=== PATIENT | female | born 1985 | race Caucasian/White ===

== ENCOUNTER → 2020-08-24 13:22 | Outpatient (CLI) | payer OTHER, MEDICAID, SELFPAY ==
[2020-08-24 12:59] VITALS: BMI 23.1
[2020-08-24 15:36] LABS: Absolute Neutrophil Count 3.5 X10^3/uL (2.0-7.7); Basophil# 0.02 X10^3/uL; Basophil% 0.4 % (0-1); Eosinophil# 0.03 X10^3/uL; Eosinophils% 0.6 % (0-5); Hematocrit 39.5 % (37-47); Hemoglobin 13.2 g/dL (12.0-15.0); Lymphocyte % 27.8 % (19-41); Mean Corp Hgb Conc 33.4 g/dL (32-36); Mean Corpuscular Hgb 30.1 pg (27.0-32.0); Mean Corpuscular Volume 90.2 fL (81-99); Mean Platelet Vol. 11.4 fl (6.2-12.0); Monocyte# 0.35 X10^3/uL; Monocyte% 6.5 % (0-10); NRBC Flagged by Analyzer 0 % (0-5); Neutrophil # 3.48 X10^3/uL (2.7-7.7); Neutrophil % 64.5 % (47-70); Platelet Count 212 K/mm3 (150-450); RBC Distribution Width CV 12.2 % (11.6-14.6); RBC Distribution Width SD 40.2 fl (35.1-43.9); Red Blood Count 4.38 M/mm3 (4.2-5.4); White Blood Count 5.4 K/mm3 (4.4-11.0)
[2020-08-24 15:57] LABS: ALB/GLOB Ratio 1.3 RATIO (0.9-2.4); AST(SGOT) 24 U/L (15-37); Alanine Aminotransfer ALT/SGPT 45 U/L (13-56); Albumin, Serum 4.4 g/dL (3.2-5.0); Alkaline Phosphatase 45 U/L (45-117); Anion Gap 5 (5-15); BUN 14 mg/dL (7-18); BUN/Creat Ratio 19.4 RATIO (10-20); Chloride 106 mmol/L (98-107); Cholesterol 202 mg/dL (200); Creatinine, Serum 0.72 mg/dL (0.55-1.02); EST Glomerular Filtration Rate 99 mL/min (>60); Est Glom Filt Rate - Afr Amer 119 mL/min (>60); Globulin 3.3 g/dL (2.2-4.2); Glucose 77 mg/dL (74-106); High Density Lipoprotein 66 mg/dL; Potassium 3.8 mmol/L (3.5-5.1); Protein, Total 7.7 g/dL (6.4-8.2); Sodium Level 139 mmol/L (136-145); T4 Free Direct 0.96 ng/dL (0.76-1.46); Thyroid Stim Hormone (TSH) 0.93 uIU/mL (0.358-3.74); Triglycerides 68 mg/dL; Very Low Density Lipoprotein 14 mg/dL (5-40)
== END ==
PROVIDERS: PCP Internal Medicine; Referring Provider Nurse Practitioner Family; Visit Provider Nurse Practitioner Family
DX: Z00.00 Encounter for general adult medical examination without abnormal findings (principal)
CPT/HCPCS: 36415; 80053; 80061; 84439; 84443; 85025

== ENCOUNTER → 2020-10-01 12:53 | Outpatient (CLI) | payer OTHER, MEDICAID, SELFPAY ==
[2020-08-24 12:59] VITALS: BMI 23.1
[2020-10-01 13:59] LABS: hCG Titer Quant., Serum 844 mIU/mL (1-3)
== END ==
PROVIDERS: PCP Internal Medicine; Referring Provider Obstetrics & Gynecology; Visit Provider Obstetrics & Gynecology
DX: O20.0 Threatened abortion (principal)
CPT/HCPCS: 36415; 84702; 86850; 86900; 86901

== ENCOUNTER → 2020-10-03 09:02 | Outpatient (CLI) | payer OTHER, MEDICAID, SELFPAY ==
[2020-08-24 12:59] VITALS: BMI 23.1
[2020-10-03 11:11] LABS: hCG Titer Quant., Serum 1003 mIU/mL (1-3)
== END ==
PROVIDERS: PCP Internal Medicine; Referring Provider Obstetrics & Gynecology; Visit Provider Obstetrics & Gynecology
DX: N93.9 Abnormal uterine and vaginal bleeding, unspecified (principal)
CPT/HCPCS: 36415; 84702

== ENCOUNTER → 2020-10-04 12:48 | Outpatient (CLI) | payer OTHER, MEDICAID, SELFPAY ==
[2020-08-24 12:59] VITALS: BMI 23.1
--- NOTE | 2020-10-04 12:52 | US_ITS ---
STUDY: FIRST TRIMESTER OBSTETRICAL ULTRASOUND REASON FOR EXAM: Female, 34 years old dating/viability -hcg 1003 LMP: Unknown TECHNIQUE: Transabdominal and Transvaginal TECHNICAL QUALITY: Adequate. PRIOR ULTRASOUND: None. FINDINGS: There is no demonstrated intrauterine gestational sac. There is no demonstrated yolk sac. The placenta is non-visualized. There is no demonstrated embryo ( pole). The uterus measures 9.5 cm x 6 cm x 5.3 cm. The endometrium measures 9 mm. There is no demonstrated uterine fibroid. The cervix is closed. The right ovary measures 3.4 cm x 2.2 cm x 1.9 cm. There is no right ovarian cyst. There is no visualized right adnexal mass or complex lesion. The left ovary measures 4.5 cm x 2.5 cm x 2.9 cm. There is a 1.9 cm x 1.8 cm x 1.8 cm complex nodule in the left adnexa. An ectopic cannot be excluded. Follow-up and correlation with serial beta hCG is recommended. There is minimal fluid in the cul de sac. US/Transvaginal w/Preg US IMPRESSION: No intrauterine gestational sac is seen. 1.9 cm x 1.8 cm x 1.8 cm complex nodule in the left adnexa. Correlation with serial beta hCG is recommended. Minimal amount of free fluid is seen in the cul-de-sac. Electronically Signed: Anderson العراقي, at 13:39 EST , Service support ,
== END ==
PROVIDERS: PCP Internal Medicine; Referring Provider Obstetrics & Gynecology; Visit Provider Obstetrics & Gynecology
DX: Z36.87 Encounter for antenatal screening for uncertain dates (principal)
CPT/HCPCS: 76817

== ENCOUNTER → 2020-10-05 14:00 | Outpatient (CLI) | payer OTHER, MEDICAID, SELFPAY ==
[2020-08-24 12:59] VITALS: BMI 23.1
[2020-10-05 14:49] LABS: hCG Titer Quant., Serum 1243 mIU/mL (1-3)
== END ==
PROVIDERS: PCP Internal Medicine; Referring Provider Obstetrics & Gynecology; Visit Provider Obstetrics & Gynecology
DX: O20.0 Threatened abortion (principal)
CPT/HCPCS: 36415; 84702

== ENCOUNTER → 2020-10-08 11:25 | Outpatient (CLI) | payer OTHER, MEDICAID, SELFPAY ==
--- NOTE | 2020-10-08 11:39 | US_ITS ---
STUDY: FIRST TRIMESTER OBSTETRICAL ULTRASOUND REASON FOR EXAM: Female, 34 years old VIABILITY, HCG 10/05/20- 1243 HCG 10/03/20 1003, UNKNOWN LMP LMP: Unknown. TECHNIQUE: Transvaginal TECHNICAL QUALITY: Adequate. PRIOR ULTRASOUND: Comparison is made with prior examination dated 10/04/2020. FINDINGS: There is no demonstrated intrauterine gestational sac. The endometrium is fluid-filled with increased echoes within it. There is no demonstrated yolk sac. The placenta is non-visualized. There is no demonstrated embryo ( pole). The estimated gestation age (EGA) by LMP is unknown. The uterus measures 8.8 cm x 4.6 cm x 6.3 cm. The endometrium measures 5.8 mm. It is fluid-filled with heterogeneous material. There is no demonstrated uterine fibroid. The cervix is closed. The right ovary measures 2.4 cm x 1.4 cm x 2.3 cm. There is no right ovarian cyst. There is no visualized right adnexal mass or complex lesion. The left ovary measures 2.9 cm x 2.9 cm x 4.8 cm. There is a 2.4 cm x 2.2 cm x 1.8 cm complex cyst in the left ovary. Follow-up is recommended. There is no visualized left adnexal mass or complex lesion. There is minimal fluid in the cul de sac. US/Init OB < 14Wks US IMPRESSION: No intrauterine gestational sac is seen. Heterogeneous appearance of the endometrium with fluid within. 2.4 cm x 2.2 cm x 1.8 cm complex cyst in the left ovary. Follow-up is recommended. Electronically Signed: Anderson العراقي, at 13:13 EST , Service support ,
[2020-10-08 14:39] LABS: hCG Titer Quant., Serum 1941 mIU/mL (1-3)
== END ==
PROVIDERS: PCP Internal Medicine; Visit Provider Obstetrics & Gynecology
DX: O20.0 Threatened abortion (principal)
CPT/HCPCS: 36415; 76801; 84702

== ENCOUNTER → 2020-10-09 13:07 | Outpatient (CLI) | payer OTHER, MEDICAID, SELFPAY ==
[2020-10-09 13:37] LABS: Absolute Lymphocyte Count 1.71 X10^3/uL (0.83-4.51); Absolute Neutrophil Count 3.7 X10^3/uL (2.0-7.7); Basophil# 0.02 X10^3/uL; Basophil% 0.3 % (0-1); Eosinophil# 0.04 X10^3/uL; Eosinophils% 0.7 % (0-5); Hematocrit 41.2 % (37-47); Hemoglobin 13.4 g/dL (12.0-15.0); Lymphocyte # 1.71 X10^3/ul (4.0); Mean Corp Hgb Conc 32.5 g/dL (32-36); Mean Corpuscular Hgb 29.9 pg (27.0-32.0); Monocyte# 0.43 X10^3/uL; Monocyte% 7.3 % (0-10); NRBC Flagged by Analyzer 0 % (0-5); Neutrophil # 3.68 X10^3/uL (2.7-7.7); Neutrophil % 62.5 % (47-70); Platelet Count 193 K/mm3 (150-450); RBC Distribution Width CV 12.8 % (11.6-14.6); RBC Distribution Width SD 43.4 fl (35.1-43.9); Red Blood Count 4.48 M/mm3 (4.2-5.4); White Blood Count 5.9 K/mm3 (4.4-11.0)
[2020-10-09 14:04] LABS: ALB/GLOB Ratio 1.4 RATIO (0.9-2.4); AST(SGOT) 9 U/L (15-37); Alanine Aminotransfer ALT/SGPT 25 U/L (13-56); Albumin, Serum 4.4 g/dL (3.2-5.0); Alkaline Phosphatase 51 U/L (45-117); Anion Gap 5 (5-15); BUN 17 mg/dL (7-18); BUN/Creat Ratio 25.3 RATIO (10-20); Chloride 109 mmol/L (98-107); Creatinine, Serum 0.67 mg/dL (0.55-1.02); EST Glomerular Filtration Rate 107 mL/min (>60); Est Glom Filt Rate - Afr Amer 129 mL/min (>60); Globulin 3.2 g/dL (2.2-4.2); Glucose 83 mg/dL (74-106); Potassium 3.4 mmol/L (3.5-5.1); Protein, Total 7.6 g/dL (6.4-8.2); Sodium Level 141 mmol/L (136-145)
[2020-10-09 14:21] LABS: hCG Titer Quant., Serum 2161 mIU/mL (1-3)
== END ==
PROVIDERS: PCP Internal Medicine; Referring Provider Obstetrics & Gynecology; Visit Provider Obstetrics & Gynecology
DX: O00.90 Unspecified ectopic pregnancy without intrauterine pregnancy (principal)
CPT/HCPCS: 36415; 80053; 84702; 85025

== ENCOUNTER → 2020-10-12 11:59 | Outpatient (CLI) | payer OTHER, MEDICAID, SELFPAY ==
[2020-10-09 13:54] VITALS: BMI 22.8
[2020-10-12 14:00] LABS: hCG Titer Quant., Serum 2996 mIU/mL (1-3)
== END ==
PROVIDERS: PCP Nurse Practitioner Family; Referring Provider Obstetrics & Gynecology; Visit Provider Obstetrics & Gynecology
DX: O00.90 Unspecified ectopic pregnancy without intrauterine pregnancy (principal); Z3A.00 Weeks of gestation of pregnancy not specified
CPT/HCPCS: 36415; 84702

== ENCOUNTER → 2020-10-15 16:20 | Outpatient (CLI) | payer OTHER, MEDICAID, SELFPAY ==
[2020-10-09 13:54] VITALS: BMI 22.8
[2020-10-15 17:09] LABS: Absolute Lymphocyte Count 1.87 X10^3/uL (0.83-4.51); Absolute Neutrophil Count 2.8 X10^3/uL (2.0-7.7); Basophil# 0.05 X10^3/uL; Basophil% 0.9 % (0-1); Eosinophil# 0.09 X10^3/uL; Eosinophils% 1.7 % (0-5); Hematocrit 38.8 % (37-47); Hemoglobin 12.7 g/dL (12.0-15.0); Lymphocyte # 1.87 X10^3/ul (4.0); Lymphocyte % 35.2 % (19-41); Mean Corp Hgb Conc 32.7 g/dL (32-36); Mean Corpuscular Hgb 30.2 pg (27.0-32.0); Mean Corpuscular Volume 92.2 fL (81-99); Mean Platelet Vol. 10.9 fl (6.2-12.0); Monocyte# 0.51 X10^3/uL; Monocyte% 9.6 % (0-10); NRBC Flagged by Analyzer 0 % (0-5); Neutrophil # 2.79 X10^3/uL (2.7-7.7); Neutrophil % 52.4 % (47-70); Platelet Count 198 K/mm3 (150-450); RBC Distribution Width CV 12.7 % (11.6-14.6); RBC Distribution Width SD 42.8 fl (35.1-43.9); Red Blood Count 4.21 M/mm3 (4.2-5.4); White Blood Count 5.3 K/mm3 (4.4-11.0)
[2020-10-15 18:41] LABS: ALB/GLOB Ratio 1.3 RATIO (0.9-2.4); AST(SGOT) 23 U/L (15-37); Alanine Aminotransfer ALT/SGPT 52 U/L (13-56); Albumin, Serum 4.1 g/dL (3.2-5.0); Alkaline Phosphatase 49 U/L (45-117); Anion Gap 7 (5-15); BUN 17 mg/dL (7-18); BUN/Creat Ratio 26.4 RATIO (10-20); Calcium,Total 8.6 mg/dL (8.5-10.1); Chloride 106 mmol/L (98-107); Creatinine, Serum 0.64 mg/dL (0.55-1.02); EST Glomerular Filtration Rate 112 mL/min (>60); Est Glom Filt Rate - Afr Amer 136 mL/min (>60); Globulin 3.1 g/dL (2.2-4.2); Glucose 84 mg/dL (74-106); Potassium 3.7 mmol/L (3.5-5.1); Protein, Total 7.2 g/dL (6.4-8.2); Sodium Level 140 mmol/L (136-145)
[2020-10-15 18:42] LABS: hCG Titer Quant., Serum 2056 mIU/mL (1-3)
== END ==
PROVIDERS: PCP Nurse Practitioner Family; Visit Provider Obstetrics & Gynecology
DX: O00.90 Unspecified ectopic pregnancy without intrauterine pregnancy (principal)
CPT/HCPCS: 36415; 80053; 84702; 85025

== ENCOUNTER 2020-10-18 17:20 | Emergency (ER) | payer OTHER, MEDICAID, SELFPAY ==
[2020-10-09 13:54] VITALS: BMI 22.8
[2020-10-18 17:21] VITALS: BP 140/76; PULSE 75; RESP 16; TEMP 36; O2SAT 100; BMI 22.2
--- NOTE | 2020-10-18 17:46 | US_ITS ---
STUDY: FIRST TRIMESTER OBSTETRICAL ULTRASOUND REASON FOR EXAM: Female, 35 years old status post left ectopic . Now with increasing pelvic pain. LMP: Unknown. TECHNIQUE: Transvaginal TECHNICAL QUALITY: Adequate. PRIOR ULTRASOUND: 07/09/2020. FINDINGS: The anteverted uterus measures 9.7 x 5.8 x 5.1 cm. The endometrium measures 8 mm. There is fluid in the endometrial canal with questionable minimal septation. There is no demonstrated uterine fibroid. There is evidence of a prior scar. There is minimal fluid in the cervical canal. The right ovary measures 2.9 x 2.6 x 1.5. There is no right ovarian cyst. There is no visualized right adnexal mass or complex lesion. Normal vascularity on DOPPLER imaging. The left ovary measures 3.7 x 1.7 x 1.6. There are multiple follicles of the left ovary without a dominant cyst. There is no visualized left adnexal mass or complex lesion. Normal vascularity on DOPPLER imaging. There is minimal fluid in the cul de sac, thought to be physiologic. US/Transvaginal w/Preg US IMPRESSION: 1. Fluid in the endometrial and cervical canals. There is a question of minimal soft tissue septation in the endometrial canal. 2. Normal ovaries. There is no evidence of a complex cyst seen in the left ovary on the previous study. Electronically Signed: Jeremias Sorto DO at 19:42 EST Tel [phone], Service support ,
--- NOTE | 2020-10-18 18:02 | ED.VIS.GEN ---
History of Present Illness Chief Complaint: Vag Bld, Preg Informant: Patient Onset: Today Narrative: Patient presents with sudden left pelvic pain and bleeding around 4:30 PM less than 2 hours ago. Patient , with twins followed by Dr. George Miranda. She was diagnosed with a recent ectopic on the left side status post chemical with injection of methotrexate 9 days ago. Is been having serial hCGs, however cramping and bleeding started today. Intermittent intense cramping symptoms. She called the on-call OB who sent her to the ED to rule out ruptured ectopic. History of anxiety depression, no anticoagulants. Prior similar symptoms: No Past Medical History - Allergies and Home Meds Allergies/Adverse Reactions: Allergies latex Allergy (Mild, Verified 10/18/20 17:23) Rash Primary Care Physician: George Flannery [employer], [employer]-C [Primary Care Provider] - Past Medical History: - - Anxiety and depression Smoking Status: Never smoker Review of Systems General: Denies: Chills, Fever, Sweats Eyes: Denies: Visual changes - bilaterally, Diplopia ENT: Denies: Rhinorrhea, Sore throat Cardiovascular: Denies: Chest pain, Palpitations Respiratory: Denies: Dyspnea, Cough, Dyspnea on exertion Gastrointestinal: Denies: Abdominal pain, Nausea, Vomiting, Diarrhea, Melena, Hematochezia Genitourinary: Reports: - - Vaginal bleeding with pelvic pain. Denies: Dysuria, Hematuria, Frequency Musculoskeletal: Denies: Back pain, Extremity Pain Skin: Denies: Rash, Wounds Neurological: Denies: Headache, Weakness, Numbness Physical Exam Vital Signs/Narrative: Vital Signs Temp Pulse Resp BP Pulse Ox 10/18/20 17:21 96.8 F L 75 16 140/76 H 100 Inital Vital Signs reviewed: Yes General: Well nourished, Well developed, No Acute Distress Head: Normocephalic, Atraumatic Eyes: Perrl, EOMI ENT: Moist mucous membranes, No rhinorrhea Neck: Supple, Nontender Cardiovascular: Regular rate, Regular rhythm, No murmurs Respiratory: No distress, CTA bilaterally, Chest nontender Abdomen: Soft, Nondistended, Normal bowel sounds, - - Tender deep palpation left pelvic, no guarding or rebound. Back: Nontender, Normal Inspection Extremities: Nontender, No edema Skin: Normal color, No rash Neurological: Alert, Oriented x3, Cranial nerves II-XII grossly intact, Normal Strength, Normal Sensation Psychological: Normal affect, Normal Mood Diagnostic/Tx/Re-eval Clinical Impression(s) from Imaging Studies Obstetrics Ultrasound 10/18/20 17:46 IMPRESSION: 1. Fluid in the endometrial and cervical canals. There is a question of minimal soft tissue septation in the endometrial canal. 2. Normal ovaries. There is no evidence of a complex cyst seen in the left ovary on the previous study. Electronically Signed: Jeremias Sorto DO at 19:42 EST Tel [phone], Service support , Abnormal Lab Results 10/18/20 10/18/20 10/18/20 18:05 18:05 18:05 WBC 7.5 RBC 3.98 L Hgb 12.2 Hct 35.9 L MCV 90.2 MCH 30.7 MCHC 34.0 RDW Std Deviation 42.0 RDW Coeff of Mague 12.8 Plt Count 193 MPV 10.5 Immature Gran % (Auto) 0.400 Neut % (Auto) 73.8 H Lymph % (Auto) 17.8 L [place] % (Auto) 6.9 Eos % (Auto) 0.8 Baso % (Auto) 0.3 Absolute Neuts (auto) 5.6 Absolute Lymphs (auto) 1.34 Nucleated RBC % 0 PT 13.1 INR 1.0 APTT 21.9 L Sodium Potassium Chloride Carbon Dioxide Anion Gap BUN Creatinine Estim Creat Clear Calc Est GFR (MDRD) Af Amer Est GFR (MDRD) Non-Af BUN/Creatinine Ratio Glucose Calcium HCG, Quant 1351 H Blood Type Antibody Screen 10/18/20 10/18/20 18:05 18:05 WBC RBC Hgb Hct MCV MCH MCHC RDW Std Deviation RDW Coeff of Mague Plt Count MPV Immature Gran % (Auto) Neut % (Auto) Lymph % (Auto) [place] % (Auto) Eos % (Auto) Baso % (Auto) Absolute Neuts (auto) Absolute Lymphs (auto) Nucleated RBC % PT INR APTT Sodium 141 Potassium 3.5 Chloride 108 H Carbon Dioxide 26.0 Anion Gap 7 BUN 21 H Creatinine 0.60 Estim Creat Clear Calc 123.68 Est GFR (MDRD) Af Amer 146 Est GFR (MDRD) Non-Af 121 BUN/Creatinine Ratio 34.8 H Glucose 84 Calcium 8.9 HCG, Quant Blood Type AB POSITIVE Antibody Screen NEGATIVE - Medical Decision Making Patient vital signs stable. She declines any medications. Labs obtained, ultrasound ordered for further evaluation. Labs are stable hCG trending down to 1351. Ultrasound negative for the complex structure left adnexal as previous. Likely patient aborted prior to arrival. She had no significant bleeding since her initial 1 prior to the ED visit. Discussed the findings with the patient. OB Dr. Carreon, updated and they will follow-up as an outpatient. She can use Tylenol or Motrin as needed. Patient is being discharged under pandemic conditions under declared global, national and state disaster activation, with limited medical resources. Patient and community understands this. Results discussed in layman's terms to the patient satisfaction. All questions answered in layman's terms. Patient understands importance of follow-up care as directed. Patient has been instructed to return to the ED immediately if new symptoms, problems, or questions occur. We mutually agree with the plan of disposition. The patient understand that they may call or return with any questions or concerns at any time. ED Disposition - Plan for ED Patient: Disposition: Home or Assisted Living Diagnosis: Vaginal bleeding, Complete Instructions: ED MISCARRIAGE Completed Referrals: Tierra Katz MD [STAFF PHYSICIAN] - 5-7 Days Additional Instructions: Ultrasound does not show the complex structure in the left adnexa, likely complete at this time. hCG 1351. Tylenol or Motrin as needed for cramping monitor bleeding follow-up with your doctor.
[2020-10-18 18:15] LABS: Absolute Lymphocyte Count 1.34 X10^3/uL (0.83-4.51); Absolute Neutrophil Count 5.6 X10^3/uL (2.0-7.7); Basophil# 0.02 X10^3/uL; Basophil% 0.3 % (0-1); Eosinophil# 0.06 X10^3/uL; Eosinophils% 0.8 % (0-5); Hematocrit 35.9 % (37-47); Hemoglobin 12.2 g/dL (12.0-15.0); Lymphocyte # 1.34 X10^3/ul (4.0); Lymphocyte % 17.8 % (19-41); Mean Corpuscular Hgb 30.7 pg (27.0-32.0); Mean Corpuscular Volume 90.2 fL (81-99); Mean Platelet Vol. 10.5 fl (6.2-12.0); Monocyte# 0.52 X10^3/uL; Monocyte% 6.9 % (0-10); NRBC Flagged by Analyzer 0 % (0-5); Neutrophil # 5.56 X10^3/uL (2.7-7.7); Neutrophil % 73.8 % (47-70); Platelet Count 193 K/mm3 (150-450); RBC Distribution Width CV 12.8 % (11.6-14.6); Red Blood Count 3.98 M/mm3 (4.2-5.4); White Blood Count 7.5 K/mm3 (4.4-11.0)
[2020-10-18 18:30] LABS: Anion Gap 7 (5-15); BUN 21 mg/dL (7-18); BUN/Creat Ratio 34.8 RATIO (10-20); Calcium,Total 8.9 mg/dL (8.5-10.1); Chloride 108 mmol/L (98-107); EST Glomerular Filtration Rate 121 mL/min (>60); Est Glom Filt Rate - Afr Amer 146 mL/min (>60); Estimated Creatinine Clearance 123.68 ml/min; Glucose 84 mg/dL (74-106); Potassium 3.5 mmol/L (3.5-5.1); Sodium Level 141 mmol/L (136-145)
[2020-10-18 18:31] LABS: Prothrombin Time (Protime)PT. 13.1 SECONDS (11.7-14.9)
[2020-10-18 18:36] LABS: Partial Thromboplast Time 21.9 Seconds (24.1-36.2)
[2020-10-18 18:54] LABS: hCG Titer Quant., Serum 1351 mIU/mL (1-3)
[2020-10-18 20:07] VITALS: BP 129/72; PULSE 71; RESP 18; O2SAT 99
== END 2020-10-18 20:08 | disposition home or self-care (01) ==
PROVIDERS: Emergency Provider Emergency Medicine; PCP Nurse Practitioner Family
DX: O03.9 Complete or unspecified spontaneous abortion without complication (principal); F32.9 Major depressive disorder, single episode, unspecified; F41.9 Anxiety disorder, unspecified; Z79.899 Other long term (current) drug therapy
CPT/HCPCS: 76817; 80048; 84702; 85025; 85610; 85730; 86850; 86900; 86901; 99283

== ENCOUNTER → 2020-10-23 15:04 | Outpatient (CLI) | payer OTHER, MEDICAID, SELFPAY ==
[2020-10-18 17:21] VITALS: BMI 22.2
[2020-10-23 16:14] LABS: hCG Titer Quant., Serum 801 mIU/mL (1-3)
== END ==
PROVIDERS: PCP Nurse Practitioner Family; Referring Provider Obstetrics & Gynecology; Visit Provider Obstetrics & Gynecology
DX: O02.1 Missed abortion (principal); Z3A.00 Weeks of gestation of pregnancy not specified
CPT/HCPCS: 36415; 84702

== ENCOUNTER → 2020-10-31 15:07 | Outpatient (CLI) | payer OTHER, MEDICAID, SELFPAY ==
[2020-10-18 17:21] VITALS: BMI 22.2
[2020-10-31 16:02] LABS: hCG Titer Quant., Serum 228 mIU/mL (1-3)
== END ==
PROVIDERS: Obstetrics & Gynecology; PCP Nurse Practitioner Family; Visit Provider Obstetrics & Gynecology
DX: O00.90 Unspecified ectopic pregnancy without intrauterine pregnancy (principal); Z3A.00 Weeks of gestation of pregnancy not specified
CPT/HCPCS: 36415; 84702

== ENCOUNTER → 2020-11-09 14:48 | Outpatient (CLI) | payer MEDICAID, SELFPAY ==
[2020-10-18 17:21] VITALS: BMI 22.2
[2020-11-09 17:35] LABS: hCG Titer Quant., Serum 38 mIU/mL (1-3)
== END ==
PROVIDERS: PCP Nurse Practitioner Family; Referring Provider Nurse Practitioner Women's Health; Visit Provider Nurse Practitioner Women's Health
DX: O00.90 Unspecified ectopic pregnancy without intrauterine pregnancy (principal); Z3A.00 Weeks of gestation of pregnancy not specified
CPT/HCPCS: 36415; 84702

== ENCOUNTER → 2020-11-20 12:59 | Outpatient (CLI) | payer OTHER, MEDICAID, SELFPAY ==
[2020-11-20 14:28] LABS: hCG Titer Quant., Serum 2 mIU/mL (1-3)
== END ==
PROVIDERS: PCP Nurse Practitioner Family; Referring Provider Obstetrics & Gynecology; Visit Provider Obstetrics & Gynecology
DX: O00.90 Unspecified ectopic pregnancy without intrauterine pregnancy (principal); Z3A.00 Weeks of gestation of pregnancy not specified
CPT/HCPCS: 36415; 84702

== ENCOUNTER 2021-03-16 11:35 | Emergency (ER) | payer MEDICAID, SELFPAY ==
[2021-03-16 11:36] VITALS: BP 136/76; PULSE 93; RESP 16; TEMP 36.7; O2SAT 97; BMI 22.6
--- NOTE | 2021-03-16 11:44 | CT_ITS ---
STUDY: CT ABDOMEN AND PELVIS WITH CONTRAST REASON FOR EXAM: Female, 35 years old. Abdominal pain. RADIATION DOSAGE (If Supplied By Facility): CTDIvol = ( 9.59 ) mGy, DLP = ( 621.68 ) mGycm TECHNIQUE: Transaxial images were obtained from the dome of the diaphragm to the symphysis pubis with oral contrast. 100 ml of ISOVUE-370 contrast was administered. Sagittal and coronal images were reconstructed. Individualized dose optimization techniques were used for this CT. COMPARISON: None. FINDINGS: The visualized lung bases are clear. The visualized portions of the heart and pericardium are within normal limits. There are no calcified gallstones present. The liver is within normal limits. There are no suspicious hepatic lesions. The spleen is normal in size. The pancreas is within normal limits. The adrenal glands are within normal limits. There are no renal or ureteral stones. There is no hydronephrosis. There are no focal renal lesions. Normal visualized stomach. There is no bowel obstruction. There are marked inflammatory changes in the right upper quadrant adjacent to an inflamed diverticulum in the hepatic flexure of the colon. The appendix is visualized and appears normal. The aorta is normal in caliber. There is no abdominal or pelvic free air, free fluid, fluid collection or lymphadenopathy. There are no destructive osseous lesions. CT/Abdomen/Pelvis WITH Contrast IMPRESSION: Marked inflammatory changes in the right upper quadrant adjacent to an inflamed diverticulum in the hepatic flexure of the colon. This is consistent with acute diverticulitis. Small amount of free fluid. No free air or fluid collection. No bowel obstruction. Normal appendix. Electronically Signed: Taz Padilla MD at 14:57 EDT Tel , Service support ,
--- NOTE | 2021-03-16 11:45 | EX.ED.DYSGE1 ---
HPI <Dr. Merly Pryor MD - Last Filed: 03/16/21 22:53> History of Present Illness Chief Complaint: Abd Pain Informant: patient Onset/Context/Timing Onset: Yesterday Context: Gradual Onset Current Severity: Moderate Maximum Severity: Severe Narrative Narrative: Patient presents secondary to abdominal pain. She points to the mid right abdomen describing the area of pain. Pain was gradual in onset yesterday. She has had poor appetite and no desire to eat. She has had nausea but has not vomited. She reports a temperature of 100.2 last evening. PFSH <Dr. Merly Pryor MD - Last Filed: 03/16/21 22:53> [facility] Medical History (Updated 03/16/21 @ 16:[address] Merly Pryor MD) Depression with anxiety Home Medications amoxicillin-pot clavulanate [Augmentin] 1 tab PO BID #20 tab 03/16/21 [Rx Last Taken Unknown] escitalopram oxalate 20 mg PO DAILY 03/16/21 [History Last Taken Unknown] hydrocodone-acetaminophen 1 tab PO Q6H PRN 3 Days #10 tab 03/16/21 [Rx Last Taken Unknown] Allergy/AdvReac Type Severity Reaction Status Date / Time latex Allergy Mild Rash Verified 10/18/20 17:23 Family History Father Heart disease Hypertension Surgical History delivery delivered S/P abdominoplasty S/P breast augmentation S/P tonsillectomy Social History Smoking Status: Never smoker alcohol intake: never substance use type: does not use caffeine: Yes what type of physical activity do you participate in: none seatbelt use: always do you feel safe at home: Yes additional social history: - Sameer ROS <Dr. Merly Pryor MD - Last Filed: 03/16/21 22:53> ROS ED Constitutional Constitutional ED: Reports fever(s) and other Details: Temperature 100.2 ; Denies chills Eyes Eyes: Denies change in vision ENT ENT ED: Denies sore throat Cardiovascular Cardiovascular: Denies chest pain Respiratory/Chest Respiratory/Chest: Denies cough or dyspnea Gastrointestinal Gastrointestinal: Reports abdominal pain, nausea and other Details: 1 loose stool yesterday ; Denies diarrhea or vomiting Genitourinary Genitourinary ED: Reports LMP (females 10-50) Details: Comment: (3 weeks ago); Denies dysuria or urinary frequency Musculoskeletal Musculoskeletal: Denies back pain Integumentary Denies rash Neurologic Neurologic: Denies headache(s) or weakness Psychiatric Psychiatric: Denies anxiety or depression Endocrine Endocrinology: Denies polydipsia or polyuria Allergic/Immunologic Allergic/Immunologic ED: Denies urticaria EXAM <Dr. Merly Pryor MD - Last Filed: 03/16/21 22:53> Physical Exam Const Vital Signs: 03/16/21 11:36 03/16/21 12:00 03/16/21 16:22 Temperature 98.0 F 98 F Temperature Source Oral Temporal Pulse Rate 93 63 Respiratory Rate 16 17 18 Blood Pressure 136/76 H 136/76 H Blood Pressure Mean 96 96 Pulse Ox 97 98 Oxygen Delivery Method Room Air Room Air 03/16/21 17:08 Temperature Temperature Source Pulse Rate 67 Respiratory Rate 16 Blood Pressure 104/70 Blood Pressure Mean Pulse Ox Oxygen Delivery Method Positive well nourished and well developed General Appearance ED: well developed HEENT Reports normocephalic and head/scalp atraumatic Eyes PERRL and EOMs intact bilaterally Neck supple Chest Wall inspection of chest normal and palpation of chest normal Resp normal respiratory effort and clear to auscultation bilaterally Cardio regular rate and regular rhythm GI Auscultation: hypoactive bowel sounds Palpation: soft and tender RLQ, LUQ and RUQ; Negative for guarding or rebound tenderness present Back/Spine no CVA tenderness Extremity normal to inspection Neuro oriented x3 and no sensory deficits noted Sensorium / Orientation: alert Motor Exam: strength 5/5 throughout Psych mental status grossly normal Skin no rashes or lesions noted <Dr. Ashley Deshpande DO - Last Filed: 03/16/21 13:57> Physical Exam Const Vital Signs: 03/16/21 11:36 03/16/21 12:00 03/16/21 16:22 Temperature 98.0 F 98 F Temperature Source Oral Temporal Pulse Rate 93 63 Respiratory Rate 16 17 18 Blood Pressure 136/76 H 136/76 H Blood Pressure Mean 96 96 Pulse Ox 97 98 Oxygen Delivery Method Room Air Room Air 03/16/21 17:08 Temperature Temperature Source Pulse Rate 67 Respiratory Rate 16 Blood Pressure 104/70 Blood Pressure Mean Pulse Ox Oxygen Delivery Method MDM <Dr. Merly Pryor MD - Last Filed: 03/16/21 22:53> [facility] Narrative Medical decision making narrative: Patient given morphine and Zofran for pain along with IV fluids. Lab Data Attestation: I reviewed the patient's lab results. Labs: Laboratory Results - last 24 hr 03/16/21 03/16/21 03/16/21 11:43 11:43 13:15 WBC 11.0 RBC 4.44 Hgb 13.4 Hct 39.2 MCV 88.3 MCH 30.2 MCHC 34.2 RDW Std Deviation 41.7 RDW Coeff of Mague 12.8 Plt Count 192 MPV 11.0 Immature Gran % (Auto) 0.200 Neut % (Auto) 77.3 H Lymph % (Auto) 14.4 L [place] % (Auto) 7.7 Eos % (Auto) 0.1 Baso % (Auto) 0.3 Absolute Neuts (auto) 8.5 H Absolute Lymphs (auto) 1.58 Nucleated RBC % 0 Sodium 139 Potassium 3.8 Chloride 104 Carbon Dioxide 27.0 Anion Gap 8 BUN 14 Creatinine 0.75 Estim Creat Clear Calc 98.94 Est GFR (MDRD) Af Amer 114 Est GFR (MDRD) Non-Af 94 BUN/Creatinine Ratio 18.7 Glucose 92 Calcium 9.4 Total Bilirubin 2.10 H AST 11 L ALT 21 Alkaline Phosphatase 49 Total Protein 7.5 Albumin 4.2 Globulin 3.3 Albumin/Globulin Ratio 1.3 Lipase 104 Serum , Qual NEGATIVE Radiography Diagnostic Testing: Radiology Impression Abdomen/Pelvis CT 03/16/21 11:44 IMPRESSION: Marked inflammatory changes in the right upper quadrant adjacent to an inflamed diverticulum in the hepatic flexure of the colon. This is consistent with acute diverticulitis. Small amount of free fluid. No free air or fluid collection. No bowel obstruction. Normal appendix. Electronically Signed: Taz Padilla MD at 14:57 EDT Tel , Service support , Treatment and Re-Evaluation Comments:: Patient did require second dose of morphine and Reglan for pain. Test results discussed with her. CT scan reveals evidence of diverticulitis in the right upper quadrant. Patient be treated with a course of Augmentin as well as [place] for pain. She is given return instructions and will follow up with her primary care physician. <Dr. Ashley Deshpande, DO - Last Filed: 03/16/21 13:57> [facility] Lab Data Labs: Laboratory Results - last 24 hr 03/16/21 03/16/21 03/16/21 11:43 11:43 13:15 WBC 11.0 RBC 4.44 Hgb 13.4 Hct 39.2 MCV 88.3 MCH 30.2 MCHC 34.2 RDW Std Deviation 41.7 RDW Coeff of Mague 12.8 Plt Count 192 MPV 11.0 Immature Gran % (Auto) 0.200 Neut % (Auto) 77.3 H Lymph % (Auto) 14.4 L [place] % (Auto) 7.7 Eos % (Auto) 0.1 Baso % (Auto) 0.3 Absolute Neuts (auto) 8.5 H Absolute Lymphs (auto) 1.58 Nucleated RBC % 0 Sodium 139 Potassium 3.8 Chloride 104 Carbon Dioxide 27.0 Anion Gap 8 BUN 14 Creatinine 0.75 Estim Creat Clear Calc 98.94 Est GFR (MDRD) Af Amer 114 Est GFR (MDRD) Non-Af 94 BUN/Creatinine Ratio 18.7 Glucose 92 Calcium 9.4 Total Bilirubin 2.10 H AST 11 L ALT 21 Alkaline Phosphatase 49 Total Protein 7.5 Albumin 4.2 Globulin 3.3 Albumin/Globulin Ratio 1.3 Lipase 104 Serum , Qual NEGATIVE Radiography Diagnostic Testing: Radiology Impression Abdomen/Pelvis CT 03/16/21 11:44 IMPRESSION: Marked inflammatory changes in the right upper quadrant adjacent to an inflamed diverticulum in the hepatic flexure of the colon. This is consistent with acute diverticulitis. Small amount of free fluid. No free air or fluid collection. No bowel obstruction. Normal appendix. Electronically Signed: Taz Padilla MD at 14:57 EDT Tel , Service support , Discharge Plan Triage Chief Complaint: Abd Pain ED Provider: Merly Pryor Dx/Rx/DC Orders Clinical Impression: Diverticulitis Instructions: ED Diverticulitis Prescriptions: New amoxicillin-pot clavulanate [Augmentin] 875-125 mg tablet 1 tab PO BID Qty: 20 RF: 0 hydrocodone-acetaminophen 5-325 mg tablet 1 tab PO Q6H PRN (Reason: pain) 3 Days Qty: 10 RF: 0 No Action escitalopram oxalate 20 mg tablet 20 mg PO DAILY RF: 0 Primary Care Provider: George Flannery NP Referrals: George Flannery NP, [facility] LIAISON-C [Primary Care Provider] - 1 Week Disposition Disposition: Home, self care Discharge Date/Time: 03/16/21 17:12
[2021-03-16 11:54] LABS: Absolute Lymphocyte Count 1.58 X10^3/uL (0.83-4.51); Absolute Neutrophil Count 8.5 X10^3/uL (2.0-7.7); Basophil# 0.03 X10^3/uL; Basophil% 0.3 % (0-1); Eosinophil# 0.01 X10^3/uL; Eosinophils% 0.1 % (0-5); Hematocrit 39.2 % (37-47); Hemoglobin 13.4 g/dL (12.0-15.0); Lymphocyte # 1.58 X10^3/ul (0.83-4.51); Lymphocyte % 14.4 % (19-41); Mean Corp Hgb Conc 34.2 g/dL (32-36); Mean Corpuscular Hgb 30.2 pg (27.0-32.0); Mean Corpuscular Volume 88.3 fL (81-99); Monocyte# 0.85 X10^3/uL; Monocyte% 7.7 % (0-10); NRBC Flagged by Analyzer 0 % (0-5); Neutrophil % 77.3 % (47-70); Platelet Count 192 K/mm3 (150-450); RBC Distribution Width CV 12.8 % (11.6-14.6); RBC Distribution Width SD 41.7 fl (35.1-43.9); Red Blood Count 4.44 M/mm3 (4.2-5.4)
[2021-03-16] MEDS: Ondansetron 4 MG/2 ML Vial IV (11:57)
[2021-03-16] MEDS: Morphine 4 MG/ML Syringe IV ×2 (11:57→13:26)
[2021-03-16 12:00] VITALS: BP 136/76; PULSE 63; RESP 17; TEMP 36.6; O2SAT 98
[2021-03-16 12:09] LABS: ALB/GLOB Ratio 1.3 RATIO (0.9-2.4); AST(SGOT) 11 U/L (15-37); Alanine Aminotransfer ALT/SGPT 21 U/L (13-56); Albumin, Serum 4.2 g/dL (3.2-5.0); Alkaline Phosphatase 49 U/L (45-117); Anion Gap 8 (5-15); BUN 14 mg/dL (7-18); BUN/Creat Ratio 18.7 RATIO (10-20); Calcium,Total 9.4 mg/dL (8.5-10.1); Chloride 104 mmol/L (98-107); Creatinine, Serum 0.75 mg/dL (0.55-1.02); EST Glomerular Filtration Rate 94 mL/min (>60); Est Glom Filt Rate - Afr Amer 114 mL/min (>60); Estimated Creatinine Clearance 98.94 ml/min; Globulin 3.3 g/dL (2.2-4.2); Glucose 92 mg/dL (74-106); Lipase 104 U/L (73-393); Potassium 3.8 mmol/L (3.5-5.1); Protein, Total 7.5 g/dL (6.4-8.2); Sodium Level 139 mmol/L (136-145)
[2021-03-16] MEDS: 0.9% Normal Saline 1,000 ML 150 ML IV (13:14)
[2021-03-16] MEDS: Metoclopramide 10 MG/2 ML Vial 5 MG IV (13:26)
[2021-03-16 13:47] LABS: Internal QC Validated? YES +Cl - CLEAR BKGD; Pregnancy, Serum, hCG Quali. NEGATIVE Negative
[2021-03-16] MEDS: HYDROcodone Bitartrate/Apap 5/325 Tablet PO (16:21)
[2021-03-16] MEDS: Amox/Clavulanate 875 MG Tablet PO (16:21)
[2021-03-16 16:22] VITALS: RESP 18
[2021-03-16 17:08] VITALS: BP 104/70; PULSE 67; RESP 16
== END 2021-03-16 17:12 | disposition home or self-care (01) ==
PROVIDERS: Emergency Provider Emergency Medicine; PCP Nurse Practitioner Family
DX: K57.32 Diverticulitis of large intestine without perforation or abscess without bleeding (principal); F32.9 Major depressive disorder, single episode, unspecified; F41.9 Anxiety disorder, unspecified; Z79.899 Other long term (current) drug therapy
CPT/HCPCS: 74177; 80053; 83690; 84703; 85025; 96361; 96374; 96375; 96376; 99284; J7030; Q9967; A4216; J2405